=== PATIENT | female | born 1950 | race Caucasian/White ===

== ENCOUNTER → 2018-08-19 | Outpatient (CLI) | payer MEDICARE, OTHER ==
[~2018-08-19] MED LIST: LEVO75TA68 PO
--- NOTE | 2018-08-23 12:50 | RADIOLOGY IMAGING REPORT ---
[place] [facility] [place] NAME: MARILIN HUSTON : [id number] MR: [id number] V: [id number] EXAM DATE: [id number] ORDERING PHYSICIAN: FRIEDA ISLAS TECHNOLOGIST: Adwoa Recinos PROCEDURE:BILATERAL DIGITAL SCREENING MAMMOGRAM WITH CAD ASSISTED INTERPRETATION & 3D TOMOSYNTHESIS COMPARISON:[facility] INDICATIONS:SCREENING FINDINGS: The breasts are heterogeneously dense. No masses or suspicious calcifications are identified in either breast. DIAGNOSTIC CATEGORY 1--NEGATIVE. RECOMMENDATIONS: ROUTINE MAMMOGRAM AND CLINICAL EVALUATION IN 1 YR. IMPRESSION: BIRADS 1: Negative. Dictated by: Raymundo Watkins M.D. on 08/19/2018 at 16:45 Transcribed by: MICHELET on 08/22/2018 at 9:57 Approved by: Jose Leal M.D. on 08/23/2018 at 12:49 [facility]
== END ==
LOC: MAMO 01:19
PROVIDERS: ATTEND Nurse Practitioner Family
DX: Z12.31 Encounter for screening mammogram for malignant neoplasm of breast (principal)
CPT/HCPCS: 77063; 77067